=== PATIENT | female | born 1975 | race Two or more races ===

== ENCOUNTER → 2018-01-04 | Outpatient (CLI) | payer BC | END | disposition home or self-care (01) | LOC: CVU 07:23 | PROVIDERS: ATTEND Internal Medicine Cardiovascular Disease | DX: E78.2 Mixed hyperlipidemia (principal); R06.02 Shortness of breath; Z87.891 Personal history of nicotine dependence | CPT/HCPCS: 93306 ==

== ENCOUNTER → 2018-04-11 | Outpatient (CLI) | payer BC | END | disposition home or self-care (01) | LOC: RAD 13:35 | PROVIDERS: ATTEND Family Medicine | DX: R60.0 Localized edema (principal); R05 Cough; M79.604 Pain in right leg; M79.89 Other specified soft tissue disorders ==

== ENCOUNTER 2019-08-21 13:08 | Emergency (ER) | payer OTHER, BC ==
[~2019-08-21] VITALS: Ht 160 cm; Wt 102.4 kg
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
[2019-08-21] MEDS ORDERED: KETOROLAC 30 MG/1 ML ONE (13:36)
[2019-08-21] MEDS ORDERED: KETOROLAC 30 MG/1 ML IM ONE (14:00)
[2019-08-21 14:17] LABS: BASOPHILS # (AUTO) 0.02 x10^3/uL (0-0.1); BASOPHILS % (AUTO) 0 % (0-1); EOSINOPHILS # (AUTO) 0.23 x10^3/uL (0-0.4); EOSINOPHILS % (AUTO) 2 % (1-7); LYMPHOCYTES # (AUTO) 2.06 x10^3/uL (1-3.4); LYMPHOCYTES % (AUTO) 21 % (22-44); MD NO; MEAN CORPUSCULAR HEMOGLOBIN 31.7 pg (27.0-34.8); MEAN CORPUSCULAR HGB CONC 34.1 g/dL (32.4-35.8); MEAN CORPUSCULAR VOLUME 93.1 fL (80-100); MEAN PLATELET VOLUME 7.6 fL (7.4-10.4); MONOCYTES # (AUTO) 0.51 x10^3/uL (0.2-0.8); MONOCYTES % (AUTO) 5 % (2-9); NEUTROPHILS # (AUTO) 7.11 x10^3/uL (1.8-6.8); NEUTROPHILS % (AUTO) 72 % (42-75); PLATELET COUNT 314 x10^3/uL (130-400); RED BLOOD COUNT 4.64 x10^6/uL (3.82-5.3); RED CELL DISTRIBUTION WIDTH 13.4 % (9.6-15.2)
[2019-08-21 14:22] LABS: ALANINE AMINOTRANSFERASE 24 U/L (12-78); ALBUMIN 3.8 g/dL (3.4-5.0); ANION GAP 6 mmol/L (5-15); CALCIUM 9.1 mg/dL (8.5-10.1); CHLORIDE 108 mmol/L (98-107)
--- NOTE | 2019-08-21 14:25 | NUR ---
PT RESTING IN BED, NSR. LABS PENDING. CXR NEG. CALL HERNDON IN REACH.
[2019-08-21 14:26] LABS: ALKALINE PHOSPHATASE 64 U/L (45-117); BILIRUBIN,TOTAL 0.6 mg/dL (0.2-1.0); TOTAL PROTEIN 7.5 g/dL (6.4-8.2); TROPONIN I < 0.015 ng/mL (0.000-0.045)
--- NOTE | 2019-08-21 14:46 | NUR ---
PT STS PAIN WENT AWAY THEN CAME BACK NOW 10/16.
[2019-08-21 15:27] VITALS: BP 128/81
== END 2019-08-21 15:29 | disposition home or self-care (01) ==
LOC: ED 14:37
DX: R07.89 Other chest pain (principal); R06.02 Shortness of breath; Z87.891 Personal history of nicotine dependence
CPT/HCPCS: 36415; 71045; 80053; 83880; 84484; 85025; 93005; 96372; 99285; J1885; 99284